=== PATIENT | male | born 1950 | race Caucasian/White ===

== ENCOUNTER 2021-07-19 11:57 | Inpatient (IN) | payer MEDICARE, OTHER ==
[~2021-07-19] VITALS: Ht 188 cm; Wt 71.1 kg
[~2021-07-19 11:57] MED LIST: ALEVE220 M1 PO; BACTRIM DS TAB1 EACH PO; CARDIZEM60 MG PO; CENTRAL-VITE1 EACH PO; ELIQUIS2.5 MG PO; LOPRESSOR50 MG PO; THERALITH XR T1 EACH PO
[2021-07-19 12:52] LABS: BASOPHIL 1.1 % (0-2); EOSINOPHIL 3.5 % (0-7); HCT 40.3 % (42.0-52.0); HGB 13.6 g/dl (13.2-18.0); LYMPHOCYTE 54.3 % (15-48); MCH 37.5 pg (25.0-31.0); MCHC 33.7 g/dL (32.0-36.0); MONOCYTE 6.9 % (0-12); MPV 10.7 fL (6.0-9.5); NRBC 0; PLT 149 K/uL (150-400); RBC 3.63 M/uL (4.70-6.00); RDW 12.3 % (11.5-14.0); WBC 6.2 K/uL (4.0-10.5)
[2021-07-19 12:58] LABS: INR 1.21 (0.9-1.2); PROTHROMBIN TIME 14.7 SECONDS (11.8-13.4); PTT 34.3 SECONDS (24.4-34.7)
[2021-07-19 13:09] LABS: ALBUMIN 3.8 g/dL (3.4-5.0); BILIRUBIN - TOTAL 0.5 mg/dL (0.2-1.0); BUN/CREAT RATIO (CALC) 17.3 RATIO; CREATININE 1.33 mg/dL (0.67-1.17); GLOBULIN (CALCULATION) 3.3 g/dL; MAGNESIUM 2.1 mg/dL (1.8-2.4); POTASSIUM 4.6 mmol/L (3.5-5.1); TOTAL PROTEIN 7.1 g/dL (6.4-8.2)
[2021-07-19 13:12] LABS: PRO-BNP 2387 pg/mL (<125)
[2021-07-19 14:34] LABS: BILIRUBIN NEGATIVE (NEGATIVE); BLOOD NEGATIVE Ery/uL (NEGATIVE); CLARITY CLEAR (CLEAR); COLOR YELLOW (YELLOW); GLUCOSE (U) NORMAL (NORMAL); LEUKOCYTES NEGATIVE Leu/uL (NEGATIVE); NITRITE NEGATIVE (NEGATIVE); PROTEIN NEGATIVE (NEGATIVE); SPECIFIC GRAVITY 1.025 (1.001-1.030); UROBILINOGEN 0.2 mg/dL (0.2-1.0)
[2021-07-19] MEDS ORDERED: ELIQUIS5 MG PO (15:24)
[2021-07-19] MEDS ORDERED: LOPRESSOR50 MG PO (15:26)
[2021-07-20 07:39] LABS: BASOPHIL 1.2 % (0-2); EOSINOPHIL 5.7 % (0-7); HCT 38.2 % (42.0-52.0); HGB 13.1 g/dl (13.2-18.0); LYMPHOCYTE 55.3 % (15-48); MCH 37.9 pg (25.0-31.0); MCHC 34.3 g/dL (32.0-36.0); MCV 110.4 fL (78.0-100.0); MONOCYTE 7.1 % (0-12); MPV 10.8 fL (6.0-9.5); NEUTROPHIL 30.5 % (41-80); NRBC 0; PLT 145 K/uL (150-400); RBC 3.46 M/uL (4.70-6.00); RDW 12.2 % (11.5-14.0); WBC 4.9 K/uL (4.0-10.5)
[2021-07-20 08:11] LABS: ALBUMIN 3.2 g/dL (3.4-5.0); BILIRUBIN - TOTAL 0.7 mg/dL (0.2-1.0); BUN/CREAT RATIO (CALC) 17.1 RATIO; CREATININE 1.23 mg/dL (0.67-1.17); MAGNESIUM 1.9 mg/dL (1.8-2.4); POTASSIUM 4.3 mmol/L (3.5-5.1); TOTAL PROTEIN 6.2 g/dL (6.4-8.2)
[2021-07-22 05:57] LABS: BASOPHIL 1.2 % (0-2); EOSINOPHIL 6.1 % (0-7); HCT 37.6 % (42.0-52.0); HGB 13.1 g/dl (13.2-18.0); LYMPHOCYTE 50.5 % (15-48); MCH 37.5 pg (25.0-31.0); MCHC 34.8 g/dL (32.0-36.0); MCV 107.7 fL (78.0-100.0); MONOCYTE 6.8 % (0-12); MPV 10.8 fL (6.0-9.5); NEUTROPHIL 35.2 % (41-80); NRBC 0; PLT 145 K/uL (150-400); RBC 3.49 M/uL (4.70-6.00); RDW 11.9 % (11.5-14.0); WBC 5.7 K/uL (4.0-10.5)
[2021-07-22 06:13] LABS: BUN/CREAT RATIO (CALC) 17.4 RATIO; CREATININE 1.32 mg/dL (0.67-1.17); MAGNESIUM 1.7 mg/dL (1.8-2.4)
--- NOTE | 2021-07-22 15:23 | NUR ---
07/22/21 Mr. Roberts lives at home with his spouse. His spouse recently had hip surgery. The couple have 3 daughters. One daughter who is a nurse is supportive. - Mr. Roberts does not use DME. - He will be transferred to [facility].
== END 2021-07-22 18:30 | disposition other institution (70) | DRG 308 ==
LOC: FER 11:57 → FTCU 14:32
PROVIDERS: Emergency Medicine; Internal Medicine; ADMIT Family Medicine
DX: I48.92 Unspecified atrial flutter (principal); J81.0 Acute pulmonary edema; I48.0 Paroxysmal atrial fibrillation; Z20.822 Contact with and (suspected) exposure to COVID-19; I42.9 Cardiomyopathy, unspecified; N18.30 Chronic kidney disease, stage 3 unspecified; I95.2 Hypotension due to drugs; T44.7X5A Adverse effect of beta-adrenoreceptor antagonists, initial encounter; I27.20 Pulmonary hypertension, unspecified; Z98.42 Cataract extraction status, left eye; Z98.41 Cataract extraction status, right eye; Z87.01 Personal history of pneumonia (recurrent); Z87.442 Personal history of urinary calculi; Z87.891 Personal history of nicotine dependence; Z82.49 Family history of ischemic heart disease and other diseases of the circulatory system; Z79.01 Long term (current) use of anticoagulants; Z79.899 Other long term (current) drug therapy
CPT/HCPCS: 36415; 71045; 80048; 80053; 81003; 83735; 83880; 84484; 85025; 85610; 85730; 93005; J0282; J1160; J1940; J3475; J7030; J7060; U0002